=== PATIENT | female | born 1955 | race Caucasian/White ===

== ENCOUNTER 2021-05-16 09:18 | Outpatient (CLI) | payer BC ==
[2021-05-16 09:45] LABS: BASOPHILS # (AUTO) 0.1 10^3/uL (0.0-0.1); BASOPHILS % (AUTO) 0.8 %; EOSINOPHILS # (AUTO) 0.2 10^3/uL (0.0-0.7); EOSINOPHILS % (AUTO) 2.8 %; HCT - HEMATOCRIT 40.3 % (37.0-47.0); HGB - HEMOGLOBIN 13.5 g/dL (12.0-16.0); LYMPHOCYTES % (AUTO) 31.4 %; MEAN CORPUSCULAR HEMOGLOBIN 29.9 pg (27.0-31.0); MEAN CORPUSCULAR HGB CONC 33.5 g/dL (32.0-36.0); MEAN CORPUSCULAR VOLUME 89.2 fL (81.0-99.0); MEAN PLATELET VOLUME 10.2 fL (7.9-10.8); MONOCYTES # (AUTO) 0.8 10^3/uL (0.0-1.0); MONOCYTES % (AUTO) 11.9 %; NEUTROPHILS # (AUTO) 3.4 10^3/uL (1.5-6.6); NEUTROPHILS % (AUTO) 52.6 %; PLT - PLATELET COUNT 199 10^3/uL (130-450); RED BLOOD COUNT 4.52 10^6/uL (4.20-5.40); RED CELL DISTRIBUTION WIDTH 13.7 % (12.0-15.0); WHITE BLOOD COUNT 6.5 x10^3/uL (4.8-10.8)
[2021-05-16 10:03] LABS: ALBUMIN 4.2 g/dL (3.2-5.5); ALBUMIN/GLOBULIN RATIO 1.4 (1.0-2.2); ALKALINE PHOSPHATASE 78 IU/L (42-121); ALT ALANINE AMINOTRANSFERASE 33 IU/L (10-60); AST ASPARTATE AMINOTRANSFERASE 24 IU/L (10-42); BILIRUBIN,TOTAL 1.3 mg/dL (0.2-1.0); BUN - BLOOD UREA NITROGEN 14 mg/dL (6-20); CALCIUM 9.3 mg/dL (8.5-10.3); CARBON DIOXIDE - CO2 28 mmol/L (21-32); CHLORIDE 98 mmol/L (101-111); CHOL/HDL RATIO 2.8 (<4.4); CHOLESTEROL 195 mg/dL; CK- CREATINE KINASE 188 IU/L (22-269); CREATININE 0.9 mg/dL (0.4-1.0); GFR - MDRD 63 (>89); GLUCOSE 122 mg/dL (70-100); HDL CHOLESTEROL 69 mg/dL; LDL CHOLESTEROL,CALCULATED 111 mg/dL; LDL/HDL RATIO 1.6 (<4.4); POTASSIUM 3.9 mmol/L (3.5-5.0); SODIUM 136 mmol/L (135-145); TOTAL PROTEIN 7.2 g/dL (6.7-8.2); TRIGLYCERIDES 75 mg/dL; VLDL CHOLESTEROL 15 mg/dL
== END 2021-05-16 09:19 | disposition home or self-care (01) ==
LOC: LAB 09:18
PROVIDERS: ATTEND Internal Medicine
DX: F32.9 Major depressive disorder, single episode, unspecified (principal); G35 Multiple sclerosis; I10 Essential (primary) hypertension; Z13.6 Encounter for screening for cardiovascular disorders; Z79.899 Other long term (current) drug therapy
CPT/HCPCS: 36415; 80053; 80061; 82550; 83721; 84443; 85025

== ENCOUNTER 2021-05-31 13:24 | Outpatient (CLI) | payer MEDICARE, BC ==
--- NOTE | 2021-06-06 10:46 | Mammography Report ---
BILATERAL DIGITAL SCREENING MAMMOGRAM 3D/2D: 05/31/2021 CLINICAL: Routine screening. Comparison is made to exam dated: 09/08/2017 mammogram - [facility]. The tissue of both breasts is predominantly fatty. There are benign calcifications in both breasts. No significant masses, calcifications, or other findings are seen in either breast. There has been no significant interval change. IMPRESSION: BENIGN There is no mammographic evidence of malignancy. A 1 year screening mammogram is recommended. This exam was interpreted at Station ID: [id number]. NOTE: For mammograms, a report in lay terms will be sent to the patient. Approximately 15% of breast malignancies will not be visualized mammographically. In the management of a palpable breast mass, a negative mammogram must not discourage biopsy of a clinically suspicious lesion. Electronically Signed By: Sacha Taveras acr/penrad:06/05/2021 12:22:20 ACR BI-RADS Category 2: Benign Finding(s) 3342F PARENCHYMAL PATTERN: (F) - The breast(s) demonstrate(s) diffuse fatty replacement. BI-RADS CATEGORY: (2) - 2 RECOMMENDATION: (ANNUAL) - Recommend routine annual screening mammography. [id number] 1 year screening LATERALITY: (B)
== END 2021-05-31 13:25 | disposition home or self-care (01) ==
LOC: DI 13:24
PROVIDERS: ATTEND Internal Medicine
DX: Z12.31 Encounter for screening mammogram for malignant neoplasm of breast (principal)

== ENCOUNTER 2021-08-05 10:09 | Outpatient (CLI) | payer MEDICARE, BC ==
--- NOTE | 2021-08-07 17:54 | CARDIAC PROCEDURE NOTE ---
Stress Test Report Type of Stress Test: Dobutamine Stress Echocardiography Summary: HR response: 75 to 140 BP response: 125/77 to 182/72 Reason for stopping: exceeded 85% max pred HR. Had dyspnea Symptoms: no CP ST segment response: mild ST dep in lead II. Upsloping. Arrhythmias: occas. PVC's Impression: no symptoms. no sig. EKG changes Conclusion: await ECHO result
== END 2021-08-05 10:10 | disposition home or self-care (01) ==
LOC: DI 10:09
PROVIDERS: ATTEND Internal Medicine
DX: R06.09 Other forms of dyspnea (principal); R07.9 Chest pain, unspecified
CPT/HCPCS: 93350

== ENCOUNTER 2021-08-12 13:20 | Outpatient (CLI) | payer MEDICARE, BC ==
--- NOTE | 2021-08-12 15:42 | XRAY Report ---
PROCEDURE: Chest 2 View X-Ray INDICATIONS: DYSPNEA TECHNIQUE: 2 view(s) of the chest. COMPARISON: None. FINDINGS: Surgical changes and devices: None. Lungs and pleura: No pleural effusions or pneumothorax. Mild diffuse basilar prominent reticular nod ular pulmonary density. Mediastinum: Mediastinal contours are normal. Heart size is normal. Bones and chest wall: No suspicious bony abnormalities. Soft tissues appear unremarkable. IMPRESSION: Mild atypical pneumonia. Reviewed by: Hero Villeda MD on 08/12/2021 3:41 PM PST Approved by: Hero Villeda MD on 08/12/2021 3:41 PM [facility] Station ID: [id number]
== END 2021-08-12 13:21 | disposition home or self-care (01) ==
LOC: DI 13:20
PROVIDERS: ATTEND Internal Medicine
DX: J18.9 Pneumonia, unspecified organism (principal)

== ENCOUNTER 2021-08-21 10:35 | Outpatient (CLI) | payer MEDICARE, BC ==
[2021-08-21] MEDS ORDERED: IOPAMIDOL-300 100 ML VIAL ONE (11:01)
[2021-08-21 11:49] LABS: CREATININE 0.8 mg/dL (0.4-1.0)
--- NOTE | 2021-08-21 16:46 | CT Report ---
PROCEDURE: CHEST W INDICATIONS: DYSPNEA, ABN CHEST XRAY CONTRAST: IV CONTRAST: Isovue 300 ml: 100 PO CONTRAST: *NO PO CONTRAST TECHNIQUE: After the administration of intravenous contrast, 1 mm axial images were acquired from the pulmonary apices through the posterior costophrenic angles. Axial 5 mm soft tissue kernel reconstructions were performed as well as 8 mm axial MIP and coronal and sagittal 5 mm reformations. For radiation dose reduction, the following was used: automated exposure control, adjustment of mA and/or kV according to patient size. COMPARISON: Chest x-ray 2 view, 08/12/2021. FINDINGS: Image quality: Excellent. Lungs and pleura: Subtle peripheral groundglass density in the right lower lobe. There are small lung nodules. Nodule 1: 4 mm; lingula; series 4 image 198. Nodule 2: 3 mm; right upper lobe; series 4 image 118. Mild emphysema. No pleural effusions or pneumothorax. Central and peripheral airways are patent and normal in caliber. Mediastinum: Heart size is normal. No pericardial effusion. No mediastinal or hilar adenopathy by size criteria. Thoracic aorta and central pulmonary arteries are normal in size. Esophagus is sarah l in caliber. No hiatal hernia. Bones and chest wall: No suspicious bony lesions. No vertebral body compression fractures. No axil destiny or supraclavicular adenopathy by size criteria. The thyroid is normal in size and there are no incidental findings.. Abdomen: Visualized upper abdominal solid organs appear normal. Upper abdominal bowel loops are nor mal in caliber. IMPRESSION: 1. Subtle peripheral groundglass density in the right lower lobe compatible with mild residual atypic al pneumonia. 2. Small lung nodules are present. Please see enclosed follow-up recommendation. Fleischner Society criteria for SOLID lung nodule followup. Nodule size (mm)Low-risk patientHigh-risk patient "d4No follow-up neededFollow-up at 12 mo; if no change, no further follow-up >4-3Ayriog-ra CT at 12 mo; if no change, no further follow-up needed.Initial follow-up CT at 6-12 mo, then 18-24 mo if no change. >6-8Initial follow-up CT at 6-12 mo, then 18-24 mo if no change. Initial follow-up CT at 3-6 mo, then 9-12 mo and 24 mo if no change. >8Follow-up CT at 3, 9, 24 mo. Or PET and/or biopsy.Same as for low-risk pts. Fleischner Society criteria for SUB-SOLID lung nodule followup. Solitary pure ground-glass nodules 5 mm or lessNo followup needed. >5 mm3 mo follow-up CT to confirm persistence. Then annual CT for 3 years. Part-solid nodules3 mo follow-up CT to confirm persistence. If persistent with solid component <5 mm , annual CT for at least 3 years. If solid component is 5 mm or more, biopsy or surgical resection. Consider PET-CT for lesions > 10 mm. Multiple sub-solid nodules Pure ground glass nodules [address] at 2 and 4 years. Pure ground glass nodules >5 mm without dominant lesion. [address] to confirm persistence, then annual followup CT for at least 3 years. Dominant nodule(s) with part-solid or solid component. [address] to confirm persistence. If persistent, consider biopsy or surgical resection, chiquita if lesions have >5 mm solid component. Reviewed by: Christiana Garland MD on 08/21/2021 4:45 PM PST Approved by: Christiana Garland MD on 08/21/2021 4:45 PM PST Station ID: [id number]
[2021-08-21] MEDS ORDERED: IOPAMIDOL-300 100 ML VIAL IVP ONE (20:45)
== END 2021-08-21 10:36 | disposition home or self-care (01) ==
LOC: DI 10:35
PROVIDERS: ATTEND Internal Medicine
DX: R91.8 Other nonspecific abnormal finding of lung field (principal); Z79.899 Other long term (current) drug therapy; J18.9 Pneumonia, unspecified organism
CPT/HCPCS: 36415; 71260; 82565; Q9967

== ENCOUNTER 2021-09-20 12:40 | Outpatient (CLI) | payer MEDICARE, BC | END 2021-09-20 23:59 | disposition home or self-care (01) | LOC: LAB.N 12:40 | PROVIDERS: ATTEND Physician Assistant | DX: R06.2 Wheezing (principal); Z20.822 Contact with and (suspected) exposure to COVID-19 ==

== ENCOUNTER 2022-08-15 09:47 | Emergency (ER) | payer MEDICARE, BC ==
--- NOTE | 2022-08-15 10:10 | XRAY Report ---
PROCEDURE: Chest 1 View X-Ray INDICATIONS: Cough/SOA TECHNIQUE: One view of the chest was acquired. COMPARISON: None. FINDINGS: Surgical changes and devices: None. Lungs and pleura: No pleural effusions or pneumothorax. Lungs are clear. Mediastinum: Mediastinal contours appear normal. Heart size is normal. Bones and chest wall: No suspicious bony lesions. Overlying soft tissues appear unremarkable. IMPRESSION: No focal infiltrate, pleural effusion or pneumothorax. Reviewed by: Ar Rehman MD on 08/15/2022 10:09 AM [facility] Approved by: Ar Rehman MD on 08/15/2022 10:09 AM [facility] Station ID: [id number]
--- NOTE | 2022-08-15 11:24 | ED Physician Documentation ---
PD HPI URI - Stated complaint Stated Complaint: SOA - Chief complaint Chief Complaint: Resp - History obtained from History obtained from: Patient - History of Present Illness Timing - onset: How many months ago (2) Timing duration: Months (2) Timing details: Gradual onset, Still present, Waxing and waning Associated symptoms: Nasal congestion, Dry cough, Dyspnea, Other (lost voice) Contributing factors: Sick contact, COPD / asthma Improves by: Rest, Medication, MDI/nebulizer Similar symptoms before: Diagnosis (URI with asthma) Recently seen: Other - Additional information Additional information: 67 y/o female seen in urgent care last night with URI with wheezing has been placed onto her 3rd round of prednisone in the past 2 months. She has not had abx previously and she was prescribed doxy last night. She was expecting to get an x-ray today but an order was not in and she has come to the ED. She has her medications and they do seem to be helpful. Her swab was negative for flu A, COVID and RSV. Review of Systems Constitutional: reports: Fever (intermittent not now) Eyes: denies: Decreased vision Ears: denies: Ear pain Nose: reports: Rhinorrhea / runny nose, Congestion Throat: denies: Sore throat Cardiac: denies: Chest pain / pressure, Palpitations, Pedal edema, Calf pain Respiratory: reports: Dyspnea, Cough, Wheezing GI: denies: Abdominal Pain, Nausea, Vomiting, Constipation, Diarrhea : denies: Dysuria, Frequency PD PAST MEDICAL HISTORY - Allergies Allergies/Adverse Reactions: Allergies Allergy/AdvReac Type Severity Reaction Status Date / Time No Known Drug Allergies Allergy Verified 08/15/22 09:53 PD ED PE NORMAL - Vitals Vital signs reviewed: Yes - General General: Alert and oriented X 3, No acute distress, Well developed/nourished - HEENT HEENT: Atraumatic, PERRL, EOMI, Ears normal, Pharynx benign - Neck Neck: Supple, no meningeal sign, No bony TTP - Cardiac Cardiac: RRR, No murmur - Respiratory Respiratory: No respiratory distress, Other (diminished breath sounds with scattered wheezes and rhonchi) - Abdomen Abdomen: Soft, Non tender - Back Back: No CVA TTP, No spinal TTP - Derm Derm: Normal color, Warm and dry, No rash - Extremities Extremities: No deformity, No edema - Neuro Neuro: Alert and oriented X 3, No motor deficit, No sensory deficit, Normal speech Eye Opening: Spontaneous Motor: Obeys Commands Verbal: Oriented GCS Score: 15 - Psych Psych: Normal mood, Normal affect Results - Vitals Vitals: Vital Signs - 24 hr 08/15/22 08/15/22 09:52 11:40 Temperature 36.6 C Heart Rate 78 77 Respiratory 18 20 Rate Blood Pressure 135/90 H 145/87 H O2 Saturation 96 98 Oxygen O2 Source Room air - Rads (name of study) Chest Radiology: Prelim report reviewed (No focal infiltrate, effusion or pneumothorax), EMP read indepedently, See rad report PD MEDICAL DECISION MAKING - ED course Complexity details: reviewed results, re-evaluated patient, considered differential, d/w patient ED course: 67 y/o female with history of RAD has another respiratory infection and she has been adequately treated by the urgent care clinic and she has no evidence of pneumonia on CXR. She is administered PO decadron and encouraged to continue her medications and follow up with the pulmonolgist as planned., Departure - Departure Disposition: 01 Home, Self Care Clinical Impression: Upper respiratory tract infection Qualifiers: URI type: unspecified URI Qualified Code(s): J06.9 - Acute upper respiratory infection, unspecified Condition: Stable Instructions: ED Bronchitis Asthmatic Follow-Up: Aurelia Grey ARNP [Primary Care Provider] - Comments: Liliane, today it looks like you have a viral respiratory infection and this has caused an increase in your asthma symptoms. The treatment recommended by the urgent care last night is recommended for this. Continue to take your medications the doxycycline and prednisone as previously prescribed. There is no evidence of pneumonia on your chest x-ray today. Follow-up with your primary care physician. Discharge Date/Time: 08/15/22 12:15
[2022-08-15] MEDS ORDERED: CHERRY SYRUP 10 ML UDC PO ONE (11:28)
[2022-08-15] MEDS ORDERED: DEXAMETHASONE 10 MG/ML VIAL PO STA (11:28)
[2022-08-15 11:40] VITALS: BP 145/87
== END 2022-08-15 12:15 | disposition home or self-care (01) ==
LOC: ED 09:47
DX: J06.9 Acute upper respiratory infection, unspecified (principal); J45.909 Unspecified asthma, uncomplicated
CPT/HCPCS: 71045; 99283; 99284; A9270

== ENCOUNTER 2023-12-24 08:09 | Outpatient (CLI) | payer MEDICARE, BC ==
[2023-12-24 12:11] LABS: BASOPHILS # (AUTO) 0.1 10^3/uL (0.0-0.1); BASOPHILS % (AUTO) 0.8 %; EOSINOPHILS # (AUTO) 0.3 10^3/uL (0.0-0.7); EOSINOPHILS % (AUTO) 4.5 %; HCT - HEMATOCRIT 40.4 % (37.0-47.0); HGB - HEMOGLOBIN 13.1 g/dL (12.0-16.0); LYMPHOCYTES # (AUTO) 2.2 10^3/uL (1.5-3.5); LYMPHOCYTES % (AUTO) 36.6 %; MEAN CORPUSCULAR HEMOGLOBIN 28.9 pg (27.0-31.0); MEAN CORPUSCULAR HGB CONC 32.4 g/dL (32.0-36.0); MEAN PLATELET VOLUME 11.4 fL (7.9-10.8); MONOCYTES # (AUTO) 0.8 10^3/uL (0.0-1.0); MONOCYTES % (AUTO) 13.1 %; NEUTROPHILS # (AUTO) 2.7 10^3/uL (1.5-6.6); NEUTROPHILS % (AUTO) 44.7 %; PLT - PLATELET COUNT 215 10^3/uL (130-450); RED BLOOD COUNT 4.54 10^6/uL (4.20-5.40); RED CELL DISTRIBUTION WIDTH 14.6 % (12.0-15.0)
[2023-12-24 12:28] LABS: ESTIMATED AVERAGE GLUCOSE 120 mg/dL (70-100); HEMOGLOBIN A1c% 5.8 % (4.27-6.07)
[2023-12-24 12:42] LABS: ALBUMIN 3.9 g/dL (3.2-5.5); ALBUMIN/GLOBULIN RATIO 1.6 (1.0-2.2); ALKALINE PHOSPHATASE 74 IU/L (42-121); ALT ALANINE AMINOTRANSFERASE 21 IU/L (10-60); AST ASPARTATE AMINOTRANSFERASE 18 IU/L (10-42); BILIRUBIN,TOTAL 0.7 mg/dL (0.2-1.0); BUN - BLOOD UREA NITROGEN 17 mg/dL (6-20); CALCIUM 9.5 mg/dL (8.5-10.3); CARBON DIOXIDE - CO2 29 mmol/L (21-32); CHLORIDE 103 mmol/L (101-111); CHOL/HDL RATIO 2.7 (<4.4); CHOLESTEROL 163 mg/dL; CREATININE 0.9 mg/dL (0.6-1.3); GFR - MDRD 62 (>89); GLUCOSE 107 mg/dL (74-104); HDL CHOLESTEROL 61 mg/dL; LDL CHOLESTEROL,CALCULATED 84 mg/dL; LDL/HDL RATIO 1.4 (<4.4); SODIUM 136 mmol/L (135-145); THYROID STIMULATING HORMONE 1.55 uIU/mL (0.34-5.60); TOTAL PROTEIN 6.4 g/dL (6.4-8.9); TRIGLYCERIDES 92 mg/dL (48-352); URIC ACID 7.8 mg/dL (2.3-6.6); VLDL CHOLESTEROL 18 mg/dL
== END 2023-12-24 08:10 | disposition home or self-care (01) ==
LOC: LAB.N 08:09
PROVIDERS: ATTEND Family Medicine
DX: R73.03 Prediabetes (principal); E66.9 Obesity, unspecified; I10 Essential (primary) hypertension; E78.5 Hyperlipidemia, unspecified; M10.9 Gout, unspecified
CPT/HCPCS: 36415; 80053; 80061; 83036; 83721; 84443; 84550; 85025

== ENCOUNTER 2024-02-23 11:50 | Outpatient (CLI) | payer MEDICARE, BC ==
--- NOTE | 2024-02-23 16:22 | XRAY Report ---
PROCEDURE: Foot 3+V RT INDICATIONS: PAIN IN RIGHT FOOT TECHNIQUE: 3 views of the foot were acquired. COMPARISON: None. FINDINGS: Bones: No fractures or dislocations. Mild to moderate osteoarthritic changes throughout right foot t here is seen most notably involving interphalangeal joints. Tiny plantar and dorsal calcaneal entheso phytes are seen. No suspicious bony lesions. Soft tissues: No tibiotalar joint effusion. Achilles tendon appears normal. IMPRESSION: 1. 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 No fracture or dislocation. 2. Tiny plantar and dorsal calcaneal enthesophytes. Reviewed by: Ar Rehman MD on 02/23/2024 4:20 PM PDT Approved by: Ar Rehman MD on 02/23/2024 4:20 PM PDT Station ID: [id number]
== END 2024-02-23 11:51 | disposition home or self-care (01) ==
LOC: DI 11:50
PROVIDERS: ATTEND Family Medicine
DX: M19.071 Primary osteoarthritis, right ankle and foot (principal); M77.31 Calcaneal spur, right foot

== ENCOUNTER 2024-05-20 08:12 | Outpatient (CLI) | payer MEDICARE, BC ==
[2024-05-20 12:36] LABS: ESTIMATED AVERAGE GLUCOSE 123 mg/dL (70-100); HEMOGLOBIN A1c% 5.9 % (4.27-6.07)
[2024-05-20 12:38] LABS: CALCIUM 9.4 mg/dL (8.5-10.3); CREATININE 0.7 mg/dL (0.6-1.3); POTASSIUM 4.3 mmol/L (3.5-4.5); URIC ACID 5.7 mg/dL (2.3-6.6)
== END 2024-05-20 08:13 | disposition home or self-care (01) ==
LOC: LAB.N 08:12
PROVIDERS: ATTEND Family Medicine
DX: I10 Essential (primary) hypertension (principal); R73.03 Prediabetes; M10.9 Gout, unspecified
CPT/HCPCS: 36415; 80048; 83036; 84550